=== PATIENT | female | born 1950 | race Caucasian/White ===

== ENCOUNTER → 2016-09-02 | Outpatient (CLI) | payer BC ==
--- NOTE | 2016-09-02 09:54 | REPMRS ---
Patient History The patient states she had a clinical breast exam in August 2015. Family history of unknown cancer in maternal grandfather at age 70, endometrial cancer in sister at age 70, unknown cancer in sister at age 36, unknown cancer in brother at age 45, and prostate cancer in brother at age 59. Took hormonal contraceptives for 10 years. Took estrogen for 1 year. Patient has lost about 10 pounds since last year. Digital Mammo Screening Bilat: September 02, 2016 - Exam #: [id number] Bilateral CC and MLO view(s) were taken. Technologist: Korina Smith, Technologist Prior study comparison: July 02, 2015, bilateral digital mammo screening bilat performed at [facility]. May 27, 2014, bilateral digital mammo screening bilat performed at [facility]. FINDINGS: There are scattered fibroglandular densities. There has been no change in the appearance of the mammogram from the prior studies. There is a mild amount of residual fibroglandular tissue which is fairly symmetric. There is no interval development of dominant mass, architectural distortion, or clustered microcalcification suggestive of malignancy. ASSESSMENT: BI-RADS/ACR category 1 mammogram. Negative. Recommendation Routine screening mammogram in 1 year (for women over age 40). This mammogram was interpreted with the aid of an FDA-approved computer-aided dectection system. Electronically Signed By: Sven Quinn MD 09/02/16 [id number]
== END ==
LOC: M RAD 08:42
PROVIDERS: ATTEND Family Medicine
DX: Z12.31 Encounter for screening mammogram for malignant neoplasm of breast (principal)

== ENCOUNTER 2016-10-22 01:53 | Inpatient (IN) | payer BC, MEDICARE ==
[~2016-10-22] VITALS: Ht 154.9 cm; Wt 73.1 kg
[2016-10-22] MEDS ORDERED: ASPI1TAB PO (02:07)
[2016-10-22] MEDS ORDERED: SIMV40TA2 PO (02:07)
[2016-10-22] MEDS ORDERED: CELE1CAP4 PO (02:07)
[2016-10-22] MEDS ORDERED: LABE20TAB PO (02:07)
[2016-10-22] MEDS ORDERED: HYDR25TAB PO (02:07)
[2016-10-22] MEDS ORDERED: POTA20TA PO ×2 (02:07)
[2016-10-22] MEDS ORDERED: ALTA1CAP4 PO (02:07)
[2016-10-22] MEDS ORDERED: METF500T13 PO (02:08)
[2016-10-22] MEDS ORDERED: CLAR1TAB2 PO (02:08)
[2016-10-22] MEDS ORDERED: KETOROLAC 30 MG/ML VIAL (J1885) IV ONE (02:45)
[2016-10-22] MEDS ORDERED: NS 1,000 ML IV ONE (02:45)
[2016-10-22 03:55] LABS: BASO % 0.4 % (0.0-1.0); EOS # 0.2 K/mm3 (0.0-0.50); EOS % 1.6 % (0.0-3.0); LARGE UNSTAINED CELL # 0.1 K/mm3 (0.0-0.4); LARGE UNSTAINED CELL % 1.3 % (0.0-4.0); LYMPH # 0.8 K/mm3 (1.5-4.5); LYMPH % 6.6 % (24.0-44.0); MEAN CORPUSCULAR HEMOGLOBIN 32.3 pg (27.0-33.0); MEAN CORPUSCULAR HGB CONC 33.8 g/dl (32.0-36.5); MEAN CORPUSCULAR VOLUME 95.6 fl (80.0-96.0); MONO # 0.7 K/mm3 (0.0-0.8); MONO % 7.2 % (0.0-5.0); NEUTROPHILS # 7.9 K/mm3 (1.8-7.7); NEUTROPHILS % 82.9 % (36.0-66.0); PLATELET COUNT, AUTOMATED 209 k/mm3 (150-450); RED CELL DISTRIBUTION WIDTH 12.6 % (11.5-14.5); WHITE BLOOD COUNT 9.5 K/mm3 (4.0-10.0)
[2016-10-22 05:01] LABS: ALBUMIN 3.3 GM/DL (3.2-5.2); ALBUMIN/GLOBULIN RATIO 0.92 (1.00-1.93); ALKALINE PHOSPHATASE 164 U/L (45-117); ALT/SGPT 92 U/L (12-78); AMYLASE 23 U/L (25-115); ANION GAP 9 MEQ/L (8-16); AST/SGOT 78 U/L (15-37); BILIRUBIN,DIRECT 0.3 MG/DL (0.0-0.2); BILIRUBIN,TOTAL 0.6 MG/DL (0.2-1.0); BLOOD UREA NITROGEN 14 MG/DL (7-18); CALCIUM LEVEL 8.8 MG/DL (8.8-10.2); CARBON DIOXIDE LEVEL 24 MEQ/L (21-32); CHLORIDE LEVEL 109 MEQ/L (98-107); CREATININE FOR GFR 0.62 MG/DL (0.55-1.02); GLOMERULAR FILTRATION RATE > 60.0 (>45); GLUCOSE, FASTING 155 MG/DL (80-110); POTASSIUM SERUM 4.5 MEQ/L (3.5-5.1); SODIUM LEVEL 142 MEQ/L (136-145); TOTAL PROTEIN 6.9 GM/DL (6.4-8.2)
[2016-10-22] MEDS ORDERED: ISOVUE-370 76% 100ML VIAL (Q9967) As Ordered ONE (05:32)
[2016-10-22] MEDS ORDERED: MORPHINE 4 MG/ML 1ML SYRINGE IV ONE (06:15)
--- NOTE | 2016-10-22 06:40 | REPUSA ---
CLINICAL HISTORY : Chest pain, exclude PE. TECHNIQUE: Multiple incremental axial, coronal and oblique images are obtained from the thoracic inle t to the upper abdomen. Intravenous contrast material was administered as per pulmonary embolism prot ocol. COMMENTS: Subpleural left upper lobe consolidation. Minimal left pleural effusion. There is excellent opacification of pulmonary arterial system without evidence for pulmonary embolism . Aorta is of normal caliber without evidence for dissection or aneurysm. There is no evidence of pleural or parenchymal mass. There is no evidence of hilar or mediastinal lym phadenopathy. The heart and great vessels are within normal limits. Images of the upper abdomen demonstrate no evidence of adrenal mass. The bony structures are free of lytic or blastic lesions. Prior cholecystectomy. IMPRESSION: No evidence for pulmonary embolism. Subpleural left upper lobe consolidation. Minimal left pleural effusion. Thank you for your kind referral of this patient.
[2016-10-22] MEDS ORDERED: CEFUROXIME SODIUM 1.5 GM in D5W MINI-BAG PLUS 50 ML IV ONE (07:00)
[2016-10-22] MEDS ORDERED: AZITHROMYCIN INJ 500 MG, VIAL MATE ADAPTER 1 EACH in D5W 250 ML IV ONE (07:00)
--- NOTE | 2016-10-22 07:00 | REPUSA ---
CLINICAL HISTORY: Abdominal pain. TECHNIQUE: Multiple axial, sagittal and coronal CT images were obtained through the abdomen and pelvi s without administration of oral or IV contrast material. COMMENTS: The liver is mildly enlarged with decreased attenuation without mass or defect. There is no intra or extrahepatic biliary ductal dilatation. The spleen is normal. Prior cholecystectomy. The pancreas is of normal contour and attenuation characteristics. There is no evidence of adrenal mass. The kidneys are normal in size, shape and configuration. No renal or ureteral calculi are identified. There is no hydroureter or hydronephrosis. There is no evidence for appendicitis. There is no bowel wall thickening. No evidence for small or la rge bowel obstruction. There is no evidence of abdominal ascites or lymphadenopathy. There is no evidence of intrinsic or extrinsic bladder mass. There is no pelvic ascites or lymphadeno tu. Mild fecal stasis. Mild fat stranding surrounding the proximal sigmoid colon. Images of the lung bases show no evidence of pleural or parenchymal mass. There is minimal left pleur al effusion. The bony structures are free of lytic or blastic lesions. Multilevel degenerative changes are seen in volving the thoracolumbar spine. Scattered calcifications are seen involving the aorta and major branches compatible with atherosclero sis. IMPRESSION: Mild fat stranding surrounding the proximal sigmoid colon. Findings are suggestive of mild diverticul itis. Mild large bowel fecal stasis. Hepatomegaly with fatty liver infiltration. Prior cholecystectomy. Thank you for your kind referral of this patient.
[2016-10-22] MEDS ORDERED: METF-414 PO (07:27)
--- NOTE | 2016-10-22 07:45 | REP ---
Portable chest, 03:05 a.m., single frontal view, patient sitting: Comparison is 05/25/2011. The lung nolan are clear. The cardiac size is normal. The rohit, mediastinum, and bony thorax are unremarkable. Impression: Negative portable chest. There is no interval change. Signed by Sven Bates MD 10/22/2016 07:36 A
[2016-10-22 08:23] LABS: ABG HCO3 23.5 MEQ/L (22.0-26.0); ABG PARTIAL PRESSURE CO2 38.6 mmHg (35.0-45.0); ABG STANDARD HCO3 23.7 MEQ/L (22.0-26.0); ABG TOTAL CO2 24.7 MEQ/L (23.0-31.0); ABG pH (ARTERIAL) 7.403 UNITS (7.350-7.450)
[2016-10-22] MEDS ORDERED: ONDANSETRON 4MG/2ML VIAL (J2405) IV PRN (08:45)
[2016-10-22] MEDS ORDERED: DEXTROSE 50% 50 ML SYRINGE IV PRN (08:45)
[2016-10-22] MEDS ORDERED: GLUCOSE 4 GM CHEW TABLET PO PRN (08:45)
[2016-10-22] MEDS ORDERED: GLUCAGON FOR INJ 1 MG VIAL (J1610) SC PRN (08:45)
[2016-10-22] MEDS ORDERED: metroNIDAZOLE 500 MG in APPROPRIATE DILUENT 1 EA IV SCH (10:00)
[2016-10-22] MEDS: CelecoXIB (CeleBREX) 100 MG CAP PO SCH (10:40)
[2016-10-22] MEDS: POTASSIUM CHLORIDE 10 MEQ SR TABLET PO SCH (10:40)
[2016-10-22] MEDS: LABETALOL 200 MG TAB PO SCH ×2 (10:41→19:54)
[2016-10-22] MEDS: hydroCHLOROthiazide 25 MG TAB PO SCH (10:41)
[2016-10-22] MEDS: LORATADINE 10 MG TAB PO SCH (10:41)
[2016-10-22] MEDS: ACETAMINOPHEN TAB 650MG DOSE (2X325MG) PO PRN ×2 (10:50→19:53)
[2016-10-22 10:54] VITALS: BP 180/80
[2016-10-22] MEDS: HumaLOG INSULIN (NovoLOG) PER UNIT SC SCH ×3 (12:00→21:00)
[2016-10-22] MEDS: ENOXAPARIN 40 MG/0.4 ML SYRINGE (J1650) SC SCH (12:00)
[2016-10-22 12:58] VITALS: BP 124/60
[2016-10-22] MEDS: cefTRIAXone SOD 1 GM in D5W MINI-BAG PLUS 50 ML IV SCH (13:41)
[2016-10-22 14:00] VITALS: BP 142/64
--- NOTE | 2016-10-22 14:18 | HPEPDOC ---
General Date of Admission Oct 22, 2016 at 08:43 Primary Care Physician: MADDY CARRILLO M.D. Chief Complaint The patient is a 66-year-old female admitted with a reason for visit of Community Acquired Pneumonia. History of Present Illness 66-year-old female with past medical history of hypertension, dyslipidemia, diabetes mellitus, and osteoporosis presents to the ER with a chief complaint of shortness of breath. The patient states that she has been feeling unwell for the last few days, and notes subjective fevers, chills, shortness of breath, and a dry cough. The patient states that she has been having what she thought was some seasonal allergies over the last few days. However, this progressed over the last 24 hours to worsening shortness of breath, and pleuritic chest pain when taking a deep breath. She denies any sick contacts, recent travel. She denies any other complaints of lightheadedness, dizziness, palpitations, abdominal pain, or any nausea/vomiting/diarrhea. In the ER, a CT of the chest revealed a small subpleural left upper lobe consolidation. The hospitalist team was subsequently called for admission and further evaluation and management. Home Medications Scheduled Aspirin (Aspirin 81) 81 Mg Tab, 81 MG PO QPM, (Reported) Celecoxib (Celebrex) 200 Mg Cap, 200 MG PO DAILY, (Reported) Hydrochlorothiazide (Hydrochlorothiazide) 25 Mg Tab, 25 MG PO DAILY, (Reported) Labetalol HCl (Labetalol HCl) 200 Mg Tab, 200 MG PO BID, (Reported) Loratadine (Claritin) 10 Mg Tab, 10 MG PO DAILY, (Reported) Metformin Hydrochloride (Metformin HCl ER) 500 Mg Tab, 500 MG PO QPM, (Reported) Potassium Chloride (Klor-Con M20) 20 Meq Tabcr, 20 MEQ PO 4XWK, (Reported) SUN,,,SAT Potassium Chloride (Klor-Con M20) 20 Meq Tabcr, 40 MEQ PO 3XW, (Reported) MON,MON,FRI Ramipril (Altace) 10 Mg Cap, 10 MG PO QPM, (Reported) Simvastatin - High Dose (Simvastatin) 40 Mg Tab, 40 MG PO QPM, (Reported) Allergies Coded Allergies: Carvedilol (Verified Allergy, Intermediate, hives, 10/22/16) Sulfa Drugs (Unverified Allergy, Unknown, 06/18/12) Sulfa Drugs Cross Reactors (Unverified Allergy, Unknown, 06/18/12) Past Medical History Medical History As noted in HPI. Surgical History Cholecystectomy, hysterectomy, carpal tunnel release, arthroscopic Surgery on the left knee Family History Maternal grandfather had melanoma, father at age 37 from car accident, mother at age 64 from emphysema Social History * Smoker: Denies Alcohol: occationally Drugs: denies Recent Travel/Sick Contacts: Denies: Recent travel, Recent sick contacts Works as a banker, is 1 month away from retiring. Lives with her sister. Is functionally independent. Review of Symptoms Other systems 10 point review of systems negative unless otherwise specified in HPI. Physical Examination General Exam: Positive: Alert, Cooperative, No Acute Distress ENT Exam: Positive: Atraumatic, Mucous membr. moist/pink Neck Exam: Negative: JVD Chest Exam: Positive: Clear to auscultation, Normal air movement, Negative: Rales, Rhonchi Heart Exam: Positive: Rate Normal, Normal S1, Normal S2 Abdomen Exam: Positive: Soft, Negative: Tenderness Extremity Exam: Negative: Tenderness, Swelling Psych Exam: Positive: Oriented x 3 Vital Signs Vital Signs Date Time Temp Pulse Resp B/P (MAP) Pulse Ox O2 Delivery O2 Flow Rate FiO2 10/22/16 12:58 124/60 (81) 10/22/16 10:54 100.5 93 18 99 Room Air Laboratory Data Labs 24H Laboratory Tests 2 10/22/16 02:19: Urine Appearance CLEAR, Urine Color YELLOW, Urine pH 6.0, Urine Specific Vanderbilt 1.010, Urine Protein NEGATIVE, Urine Glucose (UA) NEGATIVE, Urine Ketones NEGATIVE, Urine Urobilinogen 0.2, Urine Bilirubin NEGATIVE, Urine Leukocyte Esterase NEGATIVE, Urine Blood NEGATIVE, Urine Nitrite NEGATIVE, Urine WBC (Auto) 0, Urine RBC (Auto) 2, Urine Hyaline Casts (Auto) 0, Urine Bacteria (Auto) 1+H, Urine Squamous Epithelial Cells 0, Urine Sperm (Auto) 10/22/16 03:21: White Blood Count 9.5, Red Blood Count 3.82L, Hemoglobin 12.3, Hematocrit 36.5, Mean Corpuscular Volume 95.6, Mean Corpuscular Hemoglobin 32.3, Mean Corpuscular Hemoglobin Concent 33.8, Red Cell Distribution Width 12.6, Platelet Count 209, Neutrophils (%) (Auto) 82.9H, Lymphocytes (%) (Auto) 6.6L, Monocytes (%) (Auto) 7.2H, Eosinophils (%) (Auto) 1.6, Basophils (%) (Auto) 0.4, Neutrophils # (Auto) 7.9H, Lymphocytes # (Auto) 0.8L, Monocytes # (Auto) 0.7, Eosinophils # (Auto) 0.2, Basophils # (Auto) 0.0, Large Unclassified Cells % 1.3 , Large Unclassified Cells # 0.1 10/22/16 04:17: Anion Gap 9, Glomerular Filtration Rate > 60.0, Calcium Level 8.8, Aspartate Amino Transf (AST/SGOT) 78H, Alanine Aminotransferase (ALT/SGPT) 92H, Alkaline Phosphatase 164H, Total Bilirubin 0.6, Direct Bilirubin 0.3H, Total Protein 6.9 , Albumin 3.3, Albumin/Globulin Ratio 0.92L, Amylase Level 23L, Lipase 97 10/22/16 08:14: Blood Gas Bicarbonate Standard 23.7, Arterial Blood pH 7.403, Arterial Blood Partial Pressure CO2 38.6, Arterial Blood Partial Pressure O2 116.0H, Arterial Blood Total CO2 24.7, Arterial Blood HCO3 23.5, Arterial Blood Base Excess -1.0 , Arterial Blood Oxygen Saturation 98.4 10/22/16 11:28: Bedside Glucose (Misc Panel) 192H CBC/BMP Laboratory Tests 10/22/16 03:21 Red Blood Count 3.82 L, Mean Corpuscular Volume 95.6, Mean Corpuscular Hemoglobin 32.3, Mean Corpuscular Hemoglobin Concent 33.8, Red Cell Distribution Width 12.6, Neutrophils (%) (Auto) 82.9 H, Lymphocytes (%) (Auto) 6.6 L, Monocytes (%) (Auto) 7.2 H, Eosinophils (%) (Auto) 1.6, Basophils (%) ( Auto) 0.4, Neutrophils # (Auto) 7.9 H, Lymphocytes # (Auto) 0.8 L, Monocytes # ( Auto) 0.7, Eosinophils # (Auto) 0.2, Basophils # (Auto) 0.0 10/22/16 04:17 Microbiology Microbiology 10/22/16 Blood Culture, Received Pending 10/22/16 MRSA Screen, Received Pending Plan / VTE VTE Prophylaxis Ordered?: Yes Plan Plan Community-acquired pneumonia CT of the chest notable for left subpleural upper lobe consolidation Clinical findings and pleuritic symptoms suggestive of pneumonia Blood cultures ordered Sputum culture ordered MRSA screen Rocephin and azithromycin ordered The patient is afebrile, with a normal white blood cell count, and is hemodynamically stable ABG noted to be within normal limits We will continue to monitor the patient's progress ?Diverticulitis on CT Abd Patient without any acute complaints of abdominal pain/diarrhea or any GI symptoms at this time We will monitor for now Diabetes mellitus Insulin sliding scale Hypertension Continue ramipril, Hydrochlorothiazide, labetalol Dyslipidemia Continue statin Osteoarthritis continue Celebrex DVT Prophylaxis Lovenox SC Disposition--Anticipate discharge in 24-48 hours pending clinical improvement. RIO BRADLEY MD Oct 22, 2016 14:18
[2016-10-22] MEDS: RAMIPRIL 5 MG CAP PO SCH (19:54)
[2016-10-22] MEDS: ASPIRIN 81 MG ENTERIC TAB PO SCH (19:54)
[2016-10-22] MEDS: SIMVASTATIN 40 MG TAB PO SCH (19:54)
[2016-10-22 22:00] VITALS: BP 147/66
[2016-10-22] MEDS ORDERED: LIDOCAINE 5% (LIDODERM) PATCH TD ONE (22:00)
[2016-10-23] MEDS ORDERED: MORPHINE 2 MG/ML 1ML SYRINGE IV PRN (00:30)
[2016-10-23] MEDS: PERCOCET 5MG/325MG TAB PO PRN ×4 (00:51→20:23)
[2016-10-23 05:51] LABS: MEAN CORPUSCULAR HEMOGLOBIN 34.1 pg (27.0-33.0); MEAN CORPUSCULAR HGB CONC 34.9 g/dl (32.0-36.5); MEAN CORPUSCULAR VOLUME 97.7 fl (80.0-96.0); RED CELL DISTRIBUTION WIDTH 12.5 % (11.5-14.5); WHITE BLOOD COUNT 8.7 K/mm3 (4.0-10.0)
[2016-10-23 06:00] VITALS: BP 134/63
[2016-10-23 06:09] LABS: ALBUMIN 2.8 GM/DL (3.2-5.2); ALBUMIN/GLOBULIN RATIO 0.68 (1.00-1.93); ALKALINE PHOSPHATASE 149 U/L (45-117); ALT/SGPT 76 U/L (12-78); ANION GAP 9 MEQ/L (8-16); AST/SGOT 49 U/L (15-37); BILIRUBIN,DIRECT 0.3 MG/DL (0.0-0.2); BILIRUBIN,TOTAL 0.5 MG/DL (0.2-1.0); BLOOD UREA NITROGEN 15 MG/DL (7-18); CALCIUM LEVEL 8.8 MG/DL (8.8-10.2); CARBON DIOXIDE LEVEL 25 MEQ/L (21-32); CHLORIDE LEVEL 108 MEQ/L (98-107); CREATININE FOR GFR 0.62 MG/DL (0.55-1.02); GLOMERULAR FILTRATION RATE > 60.0 (>45); GLUCOSE, FASTING 129 MG/DL (80-110); MAGNESIUM LEVEL 2.4 MG/DL (1.8-2.4); POTASSIUM SERUM 4.3 MEQ/L (3.5-5.1); SODIUM LEVEL 142 MEQ/L (136-145); TOTAL PROTEIN 6.9 GM/DL (6.4-8.2)
[2016-10-23] MEDS: AZITHROMYCIN INJ 500 MG, VIAL MATE ADAPTER 1 EACH in D5W 250 ML IV SCH (06:28)
[2016-10-23] MEDS ORDERED: BISACODYL 10 MG SUPP PR PRN (08:00)
[2016-10-23] MEDS ORDERED: **NOTE PATIENT COMMENT** MISC XX SCH (10:00)
[2016-10-23] MEDS: metroNIDAZOLE 500 MG in APPROPRIATE DILUENT 1 EA IV SCH ×2 (10:00→15:05)
[2016-10-23] MEDS: hydroCHLOROthiazide 25 MG TAB PO SCH (10:01)
[2016-10-23] MEDS: CelecoXIB (CeleBREX) 100 MG CAP PO SCH (10:01)
[2016-10-23] MEDS: LABETALOL 200 MG TAB PO SCH ×2 (10:02→20:22)
[2016-10-23] MEDS: POTASSIUM CHLORIDE 10 MEQ SR TABLET PO SCH (10:02)
[2016-10-23] MEDS: LORATADINE 10 MG TAB PO SCH (10:03)
[2016-10-23] MEDS: HumaLOG INSULIN (NovoLOG) PER UNIT SC SCH ×4 (10:04→20:22)
[2016-10-23] MEDS: ENOXAPARIN 40 MG/0.4 ML SYRINGE (J1650) SC SCH (10:04)
[2016-10-23 14:00] VITALS: BP 139/64
--- NOTE | 2016-10-23 14:41 | IPNPDOC ---
Subjective Date Seen The patient was seen on 10/23/16. Subjective Chief Complaint/HPI Patient seen and examined at the bedside this morning. States that her respiratory status is improved today, as she is able to take deeper breaths with less pain. She also notes that her shortness of breath has also improved. She denies any other acute complaints at this time. Objective Physical Examination General Exam: Positive: Alert, Cooperative, No Acute Distress ENT Exam: Positive: Atraumatic, Mucous membr. moist/pink Neck Exam: Negative: JVD Chest Exam: Positive: Clear to auscultation, Normal air movement, Negative: Rales, Rhonchi Heart Exam: Positive: Rate Normal, Normal S1, Normal S2 Abdomen Exam: Positive: Soft, Negative: Tenderness Extremity Exam: Negative: Tenderness, Swelling Psych Exam: Positive: Oriented x 3 Assessment /Plan Plan/VTE VTE Prophylaxis Ordered?: Yes Plan Community-acquired pneumonia CT of the chest notable for left subpleural upper lobe consolidation Clinical findings and pleuritic symptoms suggestive of pneumonia Blood cultures, Sputum culture unrevealing thus far MRSA screen negative Continue Rocephin and azithromycin We will continue to monitor the patient's progress ?Diverticulitis on CT Abd Patient without any acute complaints of abdominal pain/diarrhea or any GI symptoms at this time We will monitor for now Diabetes mellitus Insulin sliding scale Hypertension Continue ramipril, Hydrochlorothiazide, labetalol Dyslipidemia Continue statin Osteoarthritis continue Celebrex DVT Prophylaxis Lovenox SC Disposition--patient's respiratory status continues to improve. Anticipate discharge in 24-48 hours pending clinical improvement. [facility] Sign[facility]/I&O Vital Signs Date Time Temp Pulse Resp B/P (MAP) Pulse Ox O2 Delivery O2 Flow Rate FiO2 10/23/16 10:33 18 10/23/16 10:02 74 134/63 10/23/16 06:00 98.0 95 Room Air I&O- Last 24 Hours up to 6 AM 10/23/16 06:00 Intake Total 1080 ml Balance 1080 ml Laboratory Data 24H LABS Laboratory Tests 2 10/22/16 17:10: Bedside Glucose (Misc Panel) 108 10/22/16 21:15: Bedside Glucose (Misc Panel) 136H 10/23/16 05:19: Anion Gap 9, Glomerular Filtration Rate > 60.0, Calcium Level 8.8, Magnesium Level 2.4, Aspartate Amino Transf (AST/SGOT) 49H, Alanine Aminotransferase (ALT/ SGPT) 76, Alkaline Phosphatase 149H, Total Bilirubin 0.5, Direct Bilirubin 0.3H , Total Protein 6.9, Albumin 2.8L, Albumin/Globulin Ratio 0.68L CBC/BMP Laboratory Tests 10/23/16 05:19 Red Blood Count 3.28 L, Mean Corpuscular Volume 97.7 H, Mean Corpuscular Hemoglobin 34.1 H, Mean Corpuscular Hemoglobin Concent 34.9, Red Cell Distribution Width 12.5 Microbiology Microbiology 10/22/16 Blood Culture - Preliminary, Resulted No growth after 24 hours . All specim... 10/22/16 MRSA Screen - Final, Complete RIO BRADLEY MD Oct 23, 2016 14:41
[2016-10-23] MEDS: cefTRIAXone SOD 1 GM in D5W MINI-BAG PLUS 50 ML IV SCH (15:04)
[2016-10-23] MEDS: ASPIRIN 81 MG ENTERIC TAB PO SCH (20:22)
[2016-10-23] MEDS: RAMIPRIL 5 MG CAP PO SCH (20:22)
[2016-10-23] MEDS: SIMVASTATIN 40 MG TAB PO SCH (20:23)
[2016-10-23 22:00] VITALS: BP 142/68
[2016-10-24] MEDS: metroNIDAZOLE 500 MG in APPROPRIATE DILUENT 1 EA IV SCH ×2 (00:54→08:59)
[2016-10-24 06:00] VITALS: BP 115/55
[2016-10-24] MEDS: AZITHROMYCIN INJ 500 MG, VIAL MATE ADAPTER 1 EACH in D5W 250 ML IV SCH (07:03)
[2016-10-24 07:41] LABS: MEAN CORPUSCULAR HEMOGLOBIN 32.8 pg (27.0-33.0); MEAN CORPUSCULAR HGB CONC 34.5 g/dl (32.0-36.5); RED CELL DISTRIBUTION WIDTH 11.8 % (11.5-14.5); WHITE BLOOD COUNT 7.3 K/mm3 (4.0-10.0)
[2016-10-24 07:56] LABS: ANION GAP 8 MEQ/L (8-16); BLOOD UREA NITROGEN 15 MG/DL (7-18); CALCIUM LEVEL 8.7 MG/DL (8.8-10.2); CARBON DIOXIDE LEVEL 26 MEQ/L (21-32); CHLORIDE LEVEL 107 MEQ/L (98-107); CREATININE FOR GFR 0.57 MG/DL (0.55-1.02); GLOMERULAR FILTRATION RATE > 60.0 (>45); GLUCOSE, FASTING 137 MG/DL (80-110); POTASSIUM SERUM 4.1 MEQ/L (3.5-5.1); SODIUM LEVEL 141 MEQ/L (136-145)
[2016-10-24] MEDS: ENOXAPARIN 40 MG/0.4 ML SYRINGE (J1650) SC SCH (08:56)
[2016-10-24] MEDS: HumaLOG INSULIN (NovoLOG) PER UNIT SC SCH ×4 (08:57→21:47)
[2016-10-24] MEDS: CelecoXIB (CeleBREX) 100 MG CAP PO SCH (08:58)
[2016-10-24] MEDS: POTASSIUM CHLORIDE 10 MEQ SR TABLET PO SCH (08:58)
[2016-10-24] MEDS: hydroCHLOROthiazide 25 MG TAB PO SCH (08:59)
[2016-10-24] MEDS: LORATADINE 10 MG TAB PO SCH (08:59)
[2016-10-24] MEDS: LABETALOL 200 MG TAB PO SCH ×2 (08:59→20:43)
[2016-10-24] MEDS: PERCOCET 5MG/325MG TAB PO PRN (09:08)
[2016-10-24 14:00] VITALS: BP 108/55
--- NOTE | 2016-10-24 14:54 | IPNPDOC ---
Subjective Date Seen The patient was seen on 10/24/16. Subjective Chief Complaint/HPI Patient seen and examined at bedside this morning. States that her respiratory status is slowly improving. Denies any acute overnight events. Objective Physical Examination General Exam: Positive: Alert, Cooperative, No Acute Distress ENT Exam: Positive: Atraumatic, Mucous membr. moist/pink Neck Exam: Negative: JVD Chest Exam: Positive: Clear to auscultation, Normal air movement, Negative: Rales, Rhonchi Heart Exam: Positive: Rate Normal, Normal S1, Normal S2 Abdomen Exam: Positive: Soft, Negative: Tenderness Extremity Exam: Negative: Tenderness, Swelling Psych Exam: Positive: Oriented x 3 Assessment /Plan Plan/VTE VTE Prophylaxis Ordered?: Yes Plan Community-acquired pneumonia CT of the chest notable for left subpleural upper lobe consolidation Clinical findings and pleuritic symptoms suggestive of pneumonia Blood cultures, Sputum culture unrevealing thus far MRSA screen negative Continue Rocephin and azithromycin We will continue to monitor the patient's progress ?Diverticulitis on CT Abd Patient without any acute complaints of abdominal pain/diarrhea or any GI symptoms at this time We will monitor for now Diabetes mellitus Insulin sliding scale Hypertension Continue ramipril, Hydrochlorothiazide, labetalol Dyslipidemia Continue statin Osteoarthritis continue Celebrex DVT Prophylaxis Lovenox SC Disposition--patient's respiratory status continues to improve. Anticipate discharge in 24-48 hours pending clinical improvement. VS, [facility] Signs/I&O Vital Signs Date Time Temp Pulse Resp B/P (MAP) Pulse Ox O2 Delivery O2 Flow Rate FiO2 10/24/16 09:08 14 Room Air 10/24/16 08:59 74 115/55 10/24/16 06:00 98.5 95 I&O- Last 24 Hours up to 6 AM 10/24/16 06:00 Intake Total 1690 ml Balance 1690 ml Laboratory Data 24H LABS Laboratory Tests 2 10/23/16 16:48: Bedside Glucose (Misc Panel) 101 10/23/16 20:19: Bedside Glucose (Misc Panel) 104 10/24/16 07:19: Anion Gap 8, Glomerular Filtration Rate > 60.0, Blood Urea Nitrogen 15, Creatinine 0.57, Sodium Level 141, Potassium Level 4.1, Chloride Level 107, Carbon Dioxide Level 26, Calcium Level 8.7L CBC/BMP Laboratory Tests 10/24/16 07:19 Red Blood Count 3.46 L, Mean Corpuscular Volume 95.0, Mean Corpuscular Hemoglobin 32.8, Mean Corpuscular Hemoglobin Concent 34.5, Red Cell Distribution Width 11.8, Calcium Level 8.7 L Microbiology Microbiology 10/22/16 Blood Culture - Preliminary, Resulted No Growth after 48 hours. All Specime... 10/22/16 MRSA Screen - Final, Complete RIO BRADLEY MD Oct 24, 2016 14:53
[2016-10-24] MEDS: cefTRIAXone SOD 1 GM in D5W MINI-BAG PLUS 50 ML IV SCH (14:55)
[2016-10-24] MEDS: RAMIPRIL 5 MG CAP PO SCH (20:42)
[2016-10-24] MEDS: ASPIRIN 81 MG ENTERIC TAB PO SCH (20:42)
[2016-10-24] MEDS: SIMVASTATIN 40 MG TAB PO SCH (20:42)
[2016-10-24 22:00] VITALS: BP 141/74
[2016-10-25 06:00] VITALS: BP 140/62
[2016-10-25] MEDS: AZITHROMYCIN INJ 500 MG, VIAL MATE ADAPTER 1 EACH in D5W 250 ML IV SCH (06:10)
[2016-10-25 07:06] LABS: MEAN CORPUSCULAR HEMOGLOBIN 33.3 pg (27.0-33.0); MEAN CORPUSCULAR HGB CONC 34.3 g/dl (32.0-36.5); MEAN CORPUSCULAR VOLUME 97.2 fl (80.0-96.0); RED CELL DISTRIBUTION WIDTH 12.1 % (11.5-14.5); WHITE BLOOD COUNT 5.7 K/mm3 (4.0-10.0)
[2016-10-25 07:24] LABS: ANION GAP 10 MEQ/L (8-16); BLOOD UREA NITROGEN 13 MG/DL (7-18); CALCIUM LEVEL 8.6 MG/DL (8.8-10.2); CARBON DIOXIDE LEVEL 26 MEQ/L (21-32); CHLORIDE LEVEL 105 MEQ/L (98-107); CREATININE FOR GFR 0.66 MG/DL (0.55-1.02); GLOMERULAR FILTRATION RATE > 60.0 (>45); GLUCOSE, FASTING 161 MG/DL (80-110); POTASSIUM SERUM 4.3 MEQ/L (3.5-5.1); SODIUM LEVEL 141 MEQ/L (136-145)
[2016-10-25] MEDS: HumaLOG INSULIN (NovoLOG) PER UNIT SC SCH ×2 (07:49→12:00)
[2016-10-25] MEDS: LORATADINE 10 MG TAB PO SCH (09:14)
[2016-10-25] MEDS: hydroCHLOROthiazide 25 MG TAB PO SCH (09:14)
[2016-10-25] MEDS: CelecoXIB (CeleBREX) 100 MG CAP PO SCH (09:14)
[2016-10-25] MEDS: POTASSIUM CHLORIDE 10 MEQ SR TABLET PO SCH (09:14)
[2016-10-25 09:15] VITALS: BP 140/62
[2016-10-25] MEDS: ENOXAPARIN 40 MG/0.4 ML SYRINGE (J1650) SC SCH (09:15)
[2016-10-25] MEDS: LABETALOL 200 MG TAB PO SCH (09:15)
[2016-10-25] MEDS ORDERED: LEVA750T7 PO (10:30)
[2016-10-25] MEDS: cefTRIAXone SOD 1 GM in D5W MINI-BAG PLUS 50 ML IV SCH (14:00)
--- NOTE | 2016-10-25 21:21 | DSES ---
DATE OF ADMISSION: 10/22/2016 DATE OF DISCHARGE: 10/25/2016 PRIMARY CARE PROVIDER: Dr. Jose Jimenez CONSULTANTS: None. PROCEDURES: None. COMPLICATIONS: None. ADMISSION/DISCHARGE DIAGNOSES: 1. Community-acquired pneumonia. 2. Questionable diverticulitis on CT scan. 3. Diabetes. 4. Hypertension. 5. Dyslipidemia. 6. Osteoarthritis. HOSPITALIZATION COURSE: The patient is a 66-year-old female who presented to [facility] on 10/22/2016, in the morning, with shortness of breath. Imaging study was performed and patient was found to have left subpleural upper lobe consolidations. Patient was admitted to the hospital and patient was started on empiric antibiotics. During the diagnostic workup, patient was also found to have questionable diverticulitis finding on the CT of the abdomen, however patient did not have any gastrointestinal (GI) symptoms or complaints, so patient can proceed with observation for possible GI symptoms. On the date of admission, patient did have episodes of spiking fevers. With medical management, patient's breathing continued to show improvement and patient's pleuritic pain is also improving. CT angiogram was performed and showed patient does not have a pulmonary embolus (PE). On 10/25/2016, patient is determined to be medically stable for discharge with recommendation to finish her course of antibiotics. OBJECTIVE: VITAL SIGNS: Temperature 97.5, pulse 66, respirations 18, blood pressure 140/62, pulse oximetry 96% in room air. LABORATORY DATA: WBC 5.7, hemoglobin 11.9, hematocrit 34.8, platelet count 284. Sodium 141, potassium 4.3, chloride 105, carbon dioxide 26, BUN 13, creatinine 0.66, GFR greater than 60, fasting glucose 161, calcium 8.6. Urinalysis is negative. MICROBIOLOGY: Methicillin-resistant Staphylococcus aureus (MRSA) screening is negative. Blood culture is negative after 72 hours, sample collected on 10/22/2016. IMAGING STUDIES: Chest x-ray on 10/22/2016, showed negative portable chest. CT angiogram of the chest on 10/22/2016, showed no evidence of PE. Subpleural left upper lobe consolidation. Minimal left pleural effusion. CT of the abdomen and pelvis without contrast on 10/22/2016, showed mild fat stranding surrounding the proximal sigmoid colon. Finding suggestive of mild diverticulitis. Mild large bowel fecal stasis. Hepatomegaly with fatty liver infiltrate. DISCHARGE MEDICATIONS: - Levaquin 750 mg by mouth daily for 3 more days - aspirin 81 mg by mouth every evening - Celebrex 200 mg by mouth daily - hydrochlorothiazide 25 mg by mouth daily - labetalol 200 mg by mouth twice a day - Claritin 10 mg by mouth daily - metformin 500 mg by mouth every evening - potassium chloride 20 mEq by mouth four times weekly - potassium chloride 40 mEq by mouth three times weekly - Ramipril 10 mg by mouth every evening - simvastatin 40 mg by mouth every evening DISCHARGE INSTRUCTIONS: Discontinue lines. Discharge home. Activity as tolerated. Consistent carbohydrate diet as tolerated. Patient is recommended to followup with her primary care provider, Dr. Jose Jimenez, in 1-2 weeks. Patient is recommended to finish her course of antibiotics for her lung infection. DISCHARGE CONDITION: Stable. DISCHARGE TIME: Greater than 30 minutes.
== END 2016-10-25 14:50 | disposition home or self-care (01) | DRG 139 ==
LOC: M ED 01:53 → M ED INP 08:43 → M MS5PR 10:30
PROVIDERS: ADMIT Internal Medicine; ATTEND Internal Medicine
DX: J18.9 Pneumonia, unspecified organism (principal); K57.92 Diverticulitis of intestine, part unspecified, without perforation or abscess without bleeding; I10 Essential (primary) hypertension; E11.9 Type 2 diabetes mellitus without complications; E78.5 Hyperlipidemia, unspecified; M81.0 Age-related osteoporosis without current pathological fracture; Z79.82 Long term (current) use of aspirin; Z79.84 Long term (current) use of oral hypoglycemic drugs; Z88.2 Allergy status to sulfonamides; Z88.8 Allergy status to other drugs, medicaments and biological substances; Z90.49 Acquired absence of other specified parts of digestive tract; Z90.710 Acquired absence of both cervix and uterus; Z80.9 Family history of malignant neoplasm, unspecified; Z83.6 Family history of other diseases of the respiratory system; Z79.899 Other long term (current) drug therapy

== ENCOUNTER → 2017-05-08 | Outpatient (REF) | payer MEDICARE ==
[2017-05-08 19:45] LABS: GAMMA GLUTAMYLTRANSPEPTIDASE 78 U/L (5-55)
== END ==
LOC: M LAB REF 19:09
DX: R74.8 Abnormal levels of other serum enzymes (principal)
CPT/HCPCS: 82977

== ENCOUNTER → 2017-10-27 | Outpatient (REF) | payer MEDICARE | LOC: M LAB REF 18:55 | DX: J02.9 Acute pharyngitis, unspecified (principal) | CPT/HCPCS: 87081 ==

== ENCOUNTER → 2017-11-22 | Outpatient (CLI) | payer MEDICARE | LOC: M WHC 09:38 | DX: Z01.419 Encounter for gynecological examination (general) (routine) without abnormal findings (principal); Z12.31 Encounter for screening mammogram for malignant neoplasm of breast; Z12.12 Encounter for screening for malignant neoplasm of rectum; Z92.0 Personal history of contraception; Z92.23 Personal history of estrogen therapy; Z80.49 Family history of malignant neoplasm of other genital organs | CPT/HCPCS: 77067 ==

== ENCOUNTER → 2018-11-23 | Outpatient (CLI) | payer MEDICARE ==
[~2018-11-23] MED LIST: ALTA1CAP4 PO; ASPI81TA26 PO; CELE1CAP4 PO; CLAR1TAB2 PO; HYDR25TAB PO; KLOR20TA42 PO; LABE20TAB PO; LEVA750T7 PO; METF-414 PO; METF500T13 PO; SIMV40TA20 PO
--- NOTE | 2018-11-23 09:30 | REPMRS ---
Patient History The patient states she had a clinical breast exam in 11/2018. Family history of endometrial cancer at age 70 in sister, prostate cancer at age 59 in brother. Took hormonal contraceptives for 10 years. Took estrogen for 1 year. 3D TOMOSYNTHESIS WAS PERFORMED. The [facility] lifetime risk for breast cancer is 3.3%. Digital Woman Screen Mammo: November 23, 2018 - Exam #: [id number] Bilateral CC and MLO view(s) were taken. Technologist: Josee Alberto Technologist Prior study comparison: November 22, 2017, bilateral digital woman screen mammo performed at [facility]. September 02, 2016, bilateral digital mammo screening bilat, performed at [facility]. FINDINGS: The breast tissue is heterogeneously dense. This may lower the sensitivity of mammography. There has been no change in the appearance of the mammogram from the prior studies. There is a moderate amount of residual fibroglandular tissue which is fairly symmetric. There is no interval development of dominant mass, areas of architectural distortion, or clustered microcalcification typical of malignancy. Assessment: BI-RADS/ACR category 1 mammogram. Negative Mammogram. Recommendation Routine screening mammogram in 1 year (for women over age 40). This mammogram was interpreted with the aid of an FDA-approved computer-aided dectection system. Electronically Signed By: Sven Quinn MD 11/23/18 [id number]
== END ==
LOC: M WHC 08:29
PROVIDERS: ATTEND Nurse Practitioner Family
DX: Z12.31 Encounter for screening mammogram for malignant neoplasm of breast (principal); Z80.49 Family history of malignant neoplasm of other genital organs; Z80.42 Family history of malignant neoplasm of prostate; Z92.0 Personal history of contraception; Z92.23 Personal history of estrogen therapy

== ENCOUNTER → 2019-12-03 | Outpatient (CLI) | payer MEDICARE ==
--- NOTE | 2019-12-03 12:31 | REPMRS ---
Patient History The patient states she had a clinical breast exam in November 2019.Family history of endometrial cancer at age 70 in sister, prostate cancer at age 59 in brother. Took hormonal contraceptives for 10 years. Took estrogen for 1 year. 3D TOMOSYNTHESIS WAS PERFORMED. [facility] VOLPARA DENSITY B. Digital Woman Screen Mammo: December 03, 2019 - Exam #: [id number] Bilateral CC and MLO view(s) were taken. Technologist: Zoraida Fisher, Technologist Prior study comparison: November 23, 2018, bilateral digital woman screen mammo performed at [facility]. November 22, 2017, bilateral digital woman screen mammo performed at [facility]. FINDINGS: There are scattered fibroglandular densities. There has been no change in the appearance of the mammogram from the prior studies. There is a mild amount of residual fibroglandular tissue which is fairly symmetric. There is no interval development of dominant mass, architectural distortion, or clustered microcalcification suggestive of malignancy. Assessment: BI-RADS/ACR category 1 mammogram. Negative Mammogram. Recommendation Routine screening mammogram in 1 year (for women over age 40). This mammogram was interpreted with the aid of an FDA-approved computer-aided dectection system. Electronically Signed By: Sven Quinn MD 12/03/19 [id number]
== END ==
LOC: M WHC 10:49
PROVIDERS: ATTEND Nurse Practitioner Family
DX: Z12.31 Encounter for screening mammogram for malignant neoplasm of breast (principal); Z80.49 Family history of malignant neoplasm of other genital organs; Z80.42 Family history of malignant neoplasm of prostate; Z92.0 Personal history of contraception; Z92.23 Personal history of estrogen therapy

== ENCOUNTER → 2019-12-09 | Outpatient (CLI) | payer MEDICARE ==
--- NOTE | 2019-12-09 15:47 | DEXA ---
AP SPINE L1 - L4 1.362 1.5 3.2 LT FEMUR TOTAL 1.003 0.0 1.4 LT NECK 0.925 -0.8 0.9 RT FEMUR TOTAL 0.929 -0.6 0.8 RT NECK 0.708 -2.4 -0.7 TOTAL BODY TOTAL OTHER COMMENTS: Normal bone densitometry of the spine. Normal bone densitometry of the left hip. There is low bone density of the right hip. The density of the spine is increased 15.8% since 12/15/2005. The density of the left hip has decreased 4.0% since 12/15/2005. The density of the right hip has decreased 11.8% since 12/15/2005. The increased density of the spine does represent a significant change. The decreased density of the left hip does represent a significant change. The decreased density of the right hip does represent significant change. FOLLOW-UP: Recommendation for the next bone density exam: 2 years. [place]
== END ==
LOC: M WHC 08:22
PROVIDERS: ATTEND Nurse Practitioner Family
DX: M85.851 Other specified disorders of bone density and structure, right thigh (principal); Z78.0 Asymptomatic menopausal state

== ENCOUNTER → 2021-04-29 | Outpatient (CLI) | payer MEDICARE ==
[~2021-04-29] MED LIST changes: +HYDR-3490 PO; -HYDR25TAB PO; -KLOR20TA42 PO; +POTA-141 PO
== END ==
LOC: M WHC 07:08
PROVIDERS: ATTEND Family Medicine
DX: Z12.31 Encounter for screening mammogram for malignant neoplasm of breast (principal)

== ENCOUNTER → 2022-05-03 | Outpatient (CLI) | payer MEDICARE | LOC: M WHC 15:30 | PROVIDERS: ATTEND Family Medicine | DX: Z12.31 Encounter for screening mammogram for malignant neoplasm of breast (principal) ==

== ENCOUNTER → 2023-11-16 | Outpatient (CLI) | payer MEDICARE | LOC: M WHC 07:02 | PROVIDERS: ATTEND Family Medicine | DX: Z12.31 Encounter for screening mammogram for malignant neoplasm of breast (principal) ==

== ENCOUNTER → 2024-10-08 | Outpatient (REF) | payer MEDICARE ==
[2024-10-08 12:38] LABS: VITAMIN B12 LEVEL 396.0 PG/ML (211-911)
== END ==
LOC: M LAB REF 12:01
PROVIDERS: ATTEND Family Medicine
DX: D64.9 Anemia, unspecified (principal)